=== PATIENT | male | born 1960 | race Two or more races ===

== ENCOUNTER 2025-05-22 15:19 | Outpatient (CLI) | payer MEDICARE ==
--- NOTE | 2025-05-23 18:44 | CONSULTATION ---
DATE OF CONSULTATION: 05/22/2025 DICTATING PHYSICIAN: Hyun Pan M.S., [facility]TAIL LO[employer] OFFICER MODIFIED BARIUM SWALLOW STUDY REPORT REFERRING PHYSICIAN: Barry Morrow MD HISTORY OF PRESENT ILLNESS: The patient is a 64-year-old male and consents to this evaluation. History was obtained from the patient and medical records. The patient reports symptoms of dysphagia including feeling that every now and again something feels stuck in his throat. He notes that he has to regurgitate it and then re-swallow. He reports that this occurs about 2 times per day. This has been occurring for about the past 6-8 months. 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 He had surgery for tumor removal by Dr. Morrow about 10 years ago and surgery for ulcer removal at [facility] about 5-6 years ago. He just had the surgeries and did not have any chemotherapy or radiation. The patient also reports history of puncturing his lung back in his 20s. The patient was seen by Dr. Morrow on 04/18/2025 for a flexible fiberoptic laryngoscopy, which revealed normal AXLE TURNER/OP/BOT/HP/Larynx with no lesions or mass. CURRENT DIET: In terms of caffeine, the patient states that he used to have 1 cup of coffee a day, but for the past week, he has been cutting out caffeine in support of his who is making dietary changes for laryngopharyngeal reflux disease. He does not utilize tobacco products. He has about 1 beer per day. He consumes chocolate every few days. In terms of dairy products, the patient has ice cream about 1 time weekly and some cheese. MEDICATIONS: The patient does not take any medications at this time. PARAMETERS: The patient is seated in a lateral 90-degree view and administered the usual protocol of thin and nectar thick liquids, puree, and solid consistencies, as well as self-regulated boluses of the liquids from a cup. RESULTS: In the oral stage of the swallow, the patient was easily able to transfer the bolus from the anterior to the posterior oral cavity. There did not appear to be any difficulty with strength and range of motion of the tongue that affected his ability to transport the bolus. Although, in the pharyngeal stage of the swallow, swallow initiation was delayed to the level of the vallecula or the piriforms at times. The delayed swallow initiation can occur from decreased sensation to cranial nerve 9 to trigger the swallow reflex. Anterior movement of the posterior pharyngeal wall was observed. Elevation of the hyothyroid complex was accomplished with mildly reduced epiglottic inversion. It was noted that the patient had yjpwaofn-jw-vhfdqb reduction in PES or UES opening for thin liquids only. With the thin liquids, he would have a uzdonrsb-nu-fjmlaz pharyngeal residue due to the amount that could pass through that UES at a time. However, he had adequate opening for the heavier boluses such as the thick liquid, puree and solid boluses, and there was no pharyngeal residue for those boluses. In terms of airway safety, the patient demonstrated penetration for the 5 mL thin-liquid bolus and self-regulated bolus of thin liquid from the cup. This penetration was due to residue that remained after the initial swallow of the bolus. ANTERIOR, POSTERIOR VIEW: In the AP plane, the bolus split symmetrically between the piriform sinuses and there was slowed propulsion of the bolus through the esophagus, but no proximal movement. IMPRESSION: The patient demonstrates what appears to be a moderate pharyngeal esophageal stage swallowing disorder characterized by delayed swallow initiation, mildly reduced epiglottic inversion, and xxgbtzxd-wu-anljrpbq decreased PES/UES opening for thin liquid boluses only that resulted in a zbyvmaor-ja-vuurlh pharyngeal residue again for thin liquids only. This opening was adequate for heavier boluses. He also demonstrated penetration of the 5 mL thin liquid and self-regulated boluses of thin liquids. Due to the patient not having any difficulty with swallowing until the past 6-8 months and not immediately after his surgeries, it does not appear to be due to the patient's surgeries on his tongue and so a neurological reason cannot be ruled out for why the UES is not functioning correctly. Reflux can also damage the mechanism of the UES. He did not demonstrate reflux at this time, but it is uncertain if he has had it in the past since he has had recent dietary changes. DIAGNOSES: R13.14, dysphagia, pharyngoesophageal phase, Z85.818, personal history of malignant neoplasm of other sites of lip, oral cavity and pharynx. PATIENT EDUCATION: Immediately following modified barium swallow study, the patient was able to view the results. The patient was able to see the dysfunction of the UES. He was educated on the shaker exercise with a written handout on how to complete on his own. Should completion of this exercise not eliminate the patient's symptoms of needing to regurgitate and re-swallow his food and liquid, it may be warranted to refer the patient to a neurologist regarding the UES dysfunction. RECOMMENDATIONS: * Recommended that the patient complete the shaker exercise 4 times weekly. He indicated that he felt confident in completing on his own, but should he have any difficulties with completion on the exercise, he was instructed to contact this clinic for further appointments. * It is recommended that should the patient's difficulty with regurgitation of food and liquid not be resolved with this exercise, that he be considered for a referral to a neurologist. LONG-TERM GOALS: The patient will maintain adequate hydration/nutrition with optimum safety and efficiency of swallow function on p.o. intake without overt signs and symptoms of aspiration for the highest possible diet level. FUNCTIONAL ORAL INTAKE: The FOIS was administered to establish and document a change in the functional eating activities of this patient over time. This is a 7-point scale with 1 indicating no oral intake and totally tube dependent and 7 indicating total oral intake with no restrictions. This patient received a 7, which indicates total oral intake with no restrictions. G-CODE: [id number]. Thank you very much for asking me to participate in the care of this kind patient. Should you have any questions regarding this evaluation or recommendations, please do not hesitate to contact me at [phone]. During this examination, 3:34 minutes of fluoroscopy time and 43.47 CAK mGy were utilized. Hyun Pan M.S., [employer] TID: [id number] RECEIPT: [id number] MELY MENESES
== END 2025-05-22 23:59 | disposition home or self-care (01) ==
LOC: RAD 15:19
PROVIDERS: ATTEND Otolaryngology
DX: R13.14 Dysphagia, pharyngoesophageal phase (principal); Z85.818 Personal history of malignant neoplasm of other sites of lip, oral cavity, and pharynx
CPT/HCPCS: 74230